=== PATIENT | male | born 1950 | race Caucasian/White ===

== ENCOUNTER 2016-11-07 07:39 | Day surgery (SDC) | payer MEDICARE ==
--- NOTE | ~2016-11-07 | EGD ---
EGD REPORT [facility] [address] [address] NAME: ZOLTAN VYAS : 50 STATUS : REG [facility] [place] PAT#: [id number] AGE: 66 ADM/REG DATE : 11/07/16 MR#: [id number] REPORT SERV DATE: 11/07/16 DICTATED BY: ARLENE GARDINER DATE: 11/07/16 REPORT STATUS : Draft TRANSCRIBED BY: [facility] DATE: 11/07/16 Endoscopy Center Patient Name: Zoltan Vyas Date of : 1950 Attending MD: SHAHAB GARDINER MD Procedure Date No Time: 11/07/2016 Procedure: Upper GI endoscopy Indications: Dysphagia Referring MD: Nicole Burnett Medicines: See the Anesthesia note for documentation of the administered medications Complications: No immediate complications. Estimated blood loss: None. Procedure: Pre-Anesthesia Assessment: - ASA Grade Assessment: III - A patient with severe systemic disease. - Prior to the procedure, a History and Physical was performed, and patient medications and allergies were reviewed. The patient's tolerance of previous anesthesia was also reviewed. The risks and benefits of the procedure and the sedation options and risks were discussed with the patient. All questions were answered, and informed consent was obtained. Prior Anticoagulants: The patient has taken no previous anticoagulant or antiplatelet agents. After reviewing the risks and benefits, the patient was deemed in satisfactory condition to undergo the procedure. After obtaining informed consent, the endoscope was passed under direct vision. Throughout the procedure, the patient's blood pressure, pulse, and oxygen saturations were monitored continuously. The GIF [id number] was introduced through the and advanced to the third part of duodenum. The upper GI endoscopy was accomplished without difficulty. The patient tolerated the procedure well. Findings: The examined duodenum was normal. Patchy mild inflammation characterized by erythema was found in the stomach. Biopsies were taken with a cold forceps for histology. Three small sessile polyps with no stigmata of recent bleeding were found in the stomach. These polyps were removed with a jumbo cold forceps. Resection and retrieval were complete. The cardia and gastric fundus were normal on retroflexion. Abnormal motility was noted in the esophagus. Tertiary peristaltic waves are noted. A guidewire was placed and the scope was withdrawn. Dilation EGD REPORT [address] [address] NAME: ZOLTAN VYAS : [birth year] STATUS : REG [facility]#: [id number] AGE: 66 ADM/REG DATE : 11/07/16 MR#: [id number] REPORT SERV DATE: 11/07/16 DICTATED BY: ARLENE GARDINER DATE: 11/07/16 REPORT STATUS : Draft TRANSCRIBED BY: [email or web address] DATE: 11/07/16 was performed with a Savary dilator with no resistance at 45 Fr, no resistance at 51 Fr and mild resistance at 57 Fr. Estimated blood loss: none. Impression: - Normal examined duodenum. - Gastritis. Biopsied. - Three gastric polyps. Resected and retrieved. - Esophageal motility disorder. Recommendation: - Patient has a contact number available for emergencies. The signs and symptoms of potential delayed complications were discussed with the patient. Return to normal activities tomorrow. Written discharge instructions were provided to the patient. - Regular diet. - Discharge patient to home. - Await pathology results. - See response to esophageal dilation. - Return to nurse practitioner in 4 weeks. Procedure Code(s): --- Professional --- 18912, Esophagogastroduodenoscopy, flexible, transoral; with insertion of guide wire followed by passage of dilator(s) through esophagus over guide wire 19273, Esophagogastroduodenoscopy, flexible, transoral; with biopsy, single or multiple Diagnosis Code(s): --- Professional --- K29.70, Gastritis, unspecified, without bleeding K31.7, Polyp of stomach and duodenum K22.4, Dyskinesia of esophagus R13.10, Dysphagia, unspecified CPT copyright 2013 [employer]. All rights reserved. The codes documented in this report are preliminary and upon triple valve tester review may be revised to meet current compliance requirements. SHAHAB GARDINER MD 11/07/2016 9:29 AM This report has been signed electronically. Number of Addenda: 0 Note Initiated On: 11/07/2016 9:10 AM Scope Withdrawal Time 0 hours 0 minutes 0 seconds EGD REPORT [facility] [address] [address] NAME: ZOLTAN VYAS : [birth year] STATUS : REG [facility] [place] PAT#: [id number] AGE: 66 ADM/REG DATE : 11/07/16 MR#: [id number] REPORT SERV DATE: 11/07/16 DICTATED BY: ARLENE GARDINER DATE: 11/07/16 REPORT STATUS : Draft TRANSCRIBED BY: [employer] DATE: 11/07/16 [address] [id number]
[~2016-11-07 07:39] MED LIST: BL FLAX SEED1000 MG OR; COZAAR100 MG PO; FISH-EPA1000 MG PO; GLUCCHONDR PO; LOPID6 PO; LORCET PO; MAGOX4 PO; MULTIPLE VIT PO; MULTIVITAMI1 PO; NEUR600 PO; NIACIN 500 PO; NIACOR500 MG PO; NORCO1 TAB PO; NORV5 PO; PREV15 PO; PRILO PO; PROAIRRESP INH; SINGULAIR1 PO; ULTRAM50 PO
== END 2016-11-07 23:59 | disposition home or self-care (01) ==
LOC: DMU 07:39
PROVIDERS: Internal Medicine Gastroenterology
PROC: 0DB68ZX Excision of Stomach, Via Natural or Artificial Opening Endoscopic, Diagnostic (ICD-10-PCS; principal; 2016-11-07 09:00)
PROC: 0D758ZZ Dilation of Esophagus, Via Natural or Artificial Opening Endoscopic (ICD-10-PCS; 2016-11-07 09:00)
DX: K29.50 Unspecified chronic gastritis without bleeding (principal); K22.4 Dyskinesia of esophagus; K22.2 Esophageal obstruction; K31.7 Polyp of stomach and duodenum; J44.9 Chronic obstructive pulmonary disease, unspecified; I11.0 Hypertensive heart disease with heart failure; I50.9 Heart failure, unspecified; I25.2 Old myocardial infarction; F17.210 Nicotine dependence, cigarettes, uncomplicated; K21.9 Gastro-esophageal reflux disease without esophagitis; Z88.0 Allergy status to penicillin; Z95.1 Presence of aortocoronary bypass graft; Z88.8 Allergy status to other drugs, medicaments and biological substances; Z79.891 Long term (current) use of opiate analgesic; Z79.899 Other long term (current) drug therapy; Z96.653 Presence of artificial knee joint, bilateral; Z98.890 Other specified postprocedural states
CPT/HCPCS: 88305